=== PATIENT | female | born 1990 | race Caucasian/White ===

== ENCOUNTER 2016-03-10 09:37 | Emergency (ER) | payer BC ==
[~2016-03-10] VITALS: Ht 162.6 cm; Wt 66.9 kg
[~2016-03-10 09:37] MED LIST: ACET5ELI PO; AMOX1TAB12 PO; FERR-74 PO; NAPR220C11 PO; NAPR250T34 PO; NORE0.354 PO; NORG1TAB14 PO; OXYC1TAB87 PO; PRED20TA PO; PREN1TAB39 PO; [UNRECOGNIZED DRUG - CODE] IV; [UNRECOGNIZED DRUG - CODE] IV; [UNRECOGNIZED DRUG - CODE] IV
--- OUTSIDE RECORDS SUMMARY | 2016-03-10 09:42 | XMS REPORT ---
Author Author GENERATED, SYSTEM Organization Unknown Address Unknown Phone Unavailable Care Team Providers Care Sales Enablement Specialist Name Role Phone PP Unavailable Reason For Visit Chief Complaint COLD, SORE THROAT Social History Functional Status Vital Signs Results Problems Encounter Diagnosis No relevant problems exist. Encounters Encounter Diagnosis No relevant problems exist. Plan of Care Procedures No relevant procedures performed. Immunizations No immunizations administered or ordered. Hospital Course Hospital Discharge Instructions Allergies, Adverse Reactions, Alerts Latex Allergy has not been assessed.IV Contrast Allergy has not been assessed. Medication Medication reconciliation has not been performed.
[2016-03-10 09:48] VITALS: BP 111/46
[2016-03-10 09:57] LABS: CLARITY,URINE Clear; GLUCOSE, URINE (UA) Negative (Negative); LEUKOCYTE ESTERASE ,URINE Negative (Negative)
[2016-03-10 09:59] LABS: BILIRUBIN,URINE 1+ (Negative); COLOR,URINE Dark Yellow; HCG,QUALITATIVE URINE Negative (Negative)
--- NOTE | 2016-03-10 10:08 | NUR ---
Pelvic exam by Dr. Lemos assisted by Santos Zaragoza RN
--- NOTE | 2016-03-10 10:20 | NUR ---
pt given 1000 cc of h20 for us per dr wade
[2016-03-10] MEDS ORDERED: cefTRIAXone 250 MG (ROCEPHIN) VIAL IM ONE (11:40)
[2016-03-10] MEDS ORDERED: DOXYCYCLINE 100 MG (VIBRAMYCIN) TABLET PO ONE (11:40)
[2016-03-10] MEDS ORDERED: metroNIDAZOLE 500 MG (FLAGYL) TABLET PO ONE (11:40)
[2016-03-10] MEDS ORDERED: DOXY-182 PO (11:42)
[2016-03-10] MEDS ORDERED: METR500T17 PO (11:42)
[2016-03-10] MEDS ORDERED: TRM50T PO (11:42)
[2016-03-10] MEDS ORDERED: LIDOCAINE PF 1% (XYLOCAINE) 2 ML VIAL INJ ONE (11:50)
--- NOTE | 2016-03-11 08:38 | Diagnostic Imaging Report ---
INDICATION: Pelvic pain. Pelvic sonography performed in the routine fashion with transabdominal views. FINDINGS: The uterus measured 9.7 x 4.3 x 5.7 cm. Endometrium measured 9 mm. There is no uterine mass. The right ovary contain color flow and measured 3.9 x 2.9 x 2.2 cm. The left ovary measured 3.4 x 1.9 x 2.3 cm and contains color-flow as well. There are small normal follicles in both ovaries. There is a trace of free fluid in the cul-de-sac. IMPRESSION: No uterine mass. Both ovaries showed normal small follicles and contain color flow. There is a trace of free fluid in the cul-de-sac. Dictated by: Dictated on workstation # [id number]
== END 2016-03-10 12:20 | disposition home or self-care (01) ==
LOC: EDUNIT# 09:37 → ED 09:38
DX: N73.0 Acute parametritis and pelvic cellulitis (principal); N76.0 Acute vaginitis
CPT/HCPCS: 76856; 81003; 81025; 87210; 87491; 96372; 99284; J0696; J2001; 99283